=== PATIENT | female | born 1980 | race Caucasian/White ===

== ENCOUNTER 2020-02-03 23:13 | Emergency (ER) | payer SELFPAY ==
[~2020-02-03] VITALS: Ht 175.3 cm; Wt 89.8 kg
[2020-02-03 23:28] VITALS: BP 111/50
[2020-02-03 23:47] LABS: Urine Amorphous Crystal MOD /hpf (None Seen); Urine Bacteria MOD /hpf (None Seen); Urine Blood Negative /uL (Negative); Urine Mucus FEW (None Seen); Urine Specific Gravity 1.015 (1.001-1.035); Urine WBC 64 /hpf (0 - 5); Urine WBC Clumps PRESENT /hpf (None Seen)
[2020-02-04] MEDS ORDERED: cefTRIAXone SOD 1,000 MG VL IM ONE (00:30)
[2020-02-04] MEDS ORDERED: cefTRIAXone SOD 1,000 MG VL ONE (00:33)
== END 2020-02-04 00:48 | disposition home or self-care (01) ==
LOC: ER 23:13
DX: O23.42 Unspecified infection of urinary tract in pregnancy, second trimester (principal); Z3A.16 16 weeks gestation of pregnancy
CPT/HCPCS: 36415; 76805; 81001; 84702; 96372; 99284; J0696

== ENCOUNTER 2020-03-28 21:07 | Observation (INO) | payer SELFPAY | END 2020-03-28 22:41 | disposition home or self-care (01) | LOC: LDRP 21:07 | PROVIDERS: ADMIT Obstetrics & Gynecology; ATTEND Obstetrics & Gynecology | DX: O46.92 Antepartum hemorrhage, unspecified, second trimester (principal); O26.892 Other specified pregnancy related conditions, second trimester; R10.30 Lower abdominal pain, unspecified; Z3A.25 25 weeks gestation of pregnancy | CPT/HCPCS: 59025; 76805; 81002; 87086; G0378 ==

== ENCOUNTER 2021-03-04 13:09 | Emergency (ER) | payer MEDICAID ==
[~2021-03-04] VITALS: Ht 170.2 cm; Wt 95.3 kg
[2021-03-04] MEDS ORDERED: ASPirin 81 mg TAB PO ONE (13:15)
[2021-03-04 13:39] LABS: Basophils # (auto) 0.1 10 ^3/uL (0-0.2); Basophils % (auto) 1.2 % (0.0-2.0); Eosinophils # (auto) 0.2 10 ^3/uL (0-0.8); Eosinophils % (auto) 4.4 % (0.0-7.0); Hematocrit 41.7 % (36.0-46.0); Hemoglobin 14.3 g/dL (12.2-16.2); Lymphocytes # (auto) 2.2 10 ^3/uL (0.4-5.4); Lymphocytes % (auto) 40.9 % (10.0-50.0); Mean Corpuscular Hemoglobin 31.7 pg (28.0-32.0); Mean Corpuscular Hgb Conc. 34.2 g/dL (32.0-36.0); Mean Corpuscular Volume 92.6 fL (80.0-100.0); Monocytes # (auto) 0.3 10 ^3/uL (0-1.3); Monocytes % (auto) 4.8 % (0.0-12.0); Neutrophils # (auto) 2.6 10 ^3/uL (1.6-8.6); Neutrophils % (auto) 48.7 % (37.0-80.0); Red Cell Distribution Width 12.1 % (11.8-14.3); White Blood Cell 5.4 10^3/uL (4.4-10.8)
[2021-03-04 13:48] LABS: Albumin 3.5 g/dL (3.4-5.0); Anion Gap 8 (5-15); Blood Urea Nitrogen 15 mg/dL (7-18); Calcium 8.7 mg/dL (8.5-10.1); Carbon Dioxide 24 mmol/L (21-32); Chloride 108 mmol/L (98-107); Glucose 81 mg/dL (74-106); Potassium 3.8 mmol/L (3.5-5.1); Sodium 140 mmol/L (136-145)
[2021-03-04 13:53] LABS: Alanine Aminotransferase 21 U/L (13-56); Alkaline Phosphatase 77 U/L (45-117); Aspartate Aminotransferase 18 U/L (15-37); BUN/Creatinine Ratio 17.6; Bilirubin, Total 0.8 mg/dL (0.2-1.0); GFR African American 96 mL/min; GFR Non-African American 80 mL/min; Total Protein 6.8 g/dL (6.4-8.2)
[2021-03-04 14:14] LABS: Urine Bacteria NONE SEEN /hpf (None Seen); Urine Blood Negative /uL (Negative); Urine Mucus FEW (None Seen); Urine Specific Gravity 1.016 (1.001-1.035); Urine WBC 13 /hpf (0 - 5)
[2021-03-04 15:51] VITALS: BP 110/49
== END 2021-03-04 16:04 | disposition home or self-care (01) ==
LOC: ER 13:09 → EDBD 13:09 → EDSEX 13:09 → ER 16:04
DX: R07.89 Other chest pain (principal); F41.9 Anxiety disorder, unspecified; N39.0 Urinary tract infection, site not specified; F17.210 Nicotine dependence, cigarettes, uncomplicated
CPT/HCPCS: 36415; 71045; 80053; 81001; 84484; 85025; 93005

== ENCOUNTER → 2021-11-23 | Emergency (ER) | payer MEDICAID ==
[~2021-11-23] VITALS: Ht 175.3 cm; Wt 90.7 kg
[~2021-11-23] MED LIST: CIP03OS LEFTEYE; FLUORESCEIN SOD OPTH TEST STRIP LEFTEYE ONE; TETRACAINE HCL 0.5% OPTH(EYE) SOLN 4ML LEFTEYE ONE
[2021-11-24 00:37] VITALS: BP 125/75
== END | disposition home or self-care (01) ==
LOC: ER 22:28
DX: S05.02XA Injury of conjunctiva and corneal abrasion without foreign body, left eye, initial encounter (principal); F17.210 Nicotine dependence, cigarettes, uncomplicated; Z79.2 Long term (current) use of antibiotics; X58.XXXA Exposure to other specified factors, initial encounter; Y93.89 Activity, other specified; Y92.89 Other specified places as the place of occurrence of the external cause; Y99.8 Other external cause status